=== PATIENT | male | born 2000 | race Caucasian/White ===

== ENCOUNTER → 2024-08-12 15:39 | Outpatient (BNVA) | payer BC, SELFPAY | PROVIDERS: Family Provider Nurse Practitioner Family; PCP Registered Nurse; Visit Provider Nurse Practitioner Family | DX: I10 Essential (primary) hypertension (principal); R03.0 Elevated blood-pressure reading, without diagnosis of hypertension; R53.83 Other fatigue | CPT/HCPCS: 80053; 80061; 84443; 85025 ==

== ENCOUNTER 2025-05-14 06:54 | Outpatient (CLI) | payer BC, SELFPAY ==
--- NOTE | 2025-05-14 07:14 | XR_ITS ---
WS: [id number] XR knee RT 3V* [id number] REASON FOR EXAM: S89.91XA - Unspecified injury of right lower leg, initial... FINDINGS: No fracture or focal bone lesion. Joint spaces of the knee are intact and well preserved. No soft tissue radiopaque foreign body. XR/XR knee RT 3V* [id number] IMPRESSION: No significant bone or joint abnormality.
== END 2025-05-14 06:55 | disposition home or self-care (01) ==
PROVIDERS: Family Provider Nurse Practitioner Family; PCP Nurse Practitioner Family; Visit Provider Nurse Practitioner Family
DX: S89.91XA Unspecified injury of right lower leg, initial encounter (principal); X58.XXXA Exposure to other specified factors, initial encounter
CPT/HCPCS: 73562

== ENCOUNTER 2025-06-25 08:00 | Outpatient (CLI) | payer BC, SELFPAY ==
--- NOTE | 2025-06-25 08:00 | MR_ITS ---
WS: [id number] MRI RIGHT KNEE NONCONTRAST TECHNIQUE: Axial PD, coronal PD fat sat, coronal PD, sagittal PD, and sagittal PD fat-sat images obtained. CLINICAL INFORMATION: M25.361 - Other instability, right knee COMPARISON: None. FINDINGS: Distal quadriceps and patella tendons are intact. Normal ACL and PCL. Suspected radial tear involving the medial meniscus with blunting of the anterior horn. No visualized displaced fragments. Lateral meniscus appears intact. Recommend correlation for medial knee pain Mild chondromalacia patella. Medial and lateral patellar retinaculum appear intact. Normal lateral collateral ligament. Normal medial collateral ligament. Normal popliteal fossa. No other acute findings. MR/MR knee RT wo con* [id number] IMPRESSION: 1. Normal ACL and PCL. 2. Suspected radial tear involving the medial meniscus extending to the menisc al root. Blunting of the anterior horn medial meniscus. Lateral meniscus appear s intact. 3. Normal medial and lateral collateral ligaments. 4. Mild chondromalacia patella. 5. No other acute findings. Outbridge grading: grade II: blister-like swelling/fraying of articular cartila ge extending to surface
== END 2025-06-25 08:01 | disposition home or self-care (01) ==
LOC: RAD 08:02
PROVIDERS: Family Provider Nurse Practitioner Family; PCP Nurse Practitioner Family; Visit Provider Nurse Practitioner Family
DX: M25.361 Other instability, right knee (principal); M22.41 Chondromalacia patellae, right knee; M24.10 Other articular cartilage disorders, unspecified site; S89.81XA Other specified injuries of right lower leg, initial encounter; X58.XXXA Exposure to other specified factors, initial encounter
CPT/HCPCS: 73721

== ENCOUNTER 2025-08-10 08:25 | Day surgery (SDC) | payer OTHER, SELFPAY ==
[2025-08-10] VITALS (9 sets, daily range): BP systolic 108–126; BP diastolic 55–87; PULSE 69–98; RESP 10–24; TEMP 36.3–36.7; O2SAT 95–100; BMI 26.4
--- NOTE | 2025-08-10 09:16 | ANES.PREANE2 ---
Pre-Anesthetic Assessment Height/Weight: Height 6 ft Weight 195 lb Temp Pulse Resp BP Pulse Ox O2 Del Method 98.1 F 76 17 126/55 97 Room Air 08/10/25 08:50 08/10/25 08:50 08/10/25 08:50 08/10/25 08:50 08/10/25 08:50 08/10/25 08:51 Preop Diagnosis: Meniscus tear Operation Date: 08/10/25 10:40 Proposed Procedures p RIGHT Knee Arthroscopic With POSSIBLE Medial Meniscus Repair(Right) - Trey Dodge MD Was Beta Kika taken within 24 hours: N/A Was Clonidine taken within 24 hours: N/A Last intake: Intake Last Liquid Date 08/09/25 Last Liquid Time 21:00 Last Solid Date 08/09/25 Last Solid Time 19:00 Social No alcohol and No tobacco Exam alert, oriented x 3, clear to auscultation bilaterally and regular rate & rhythm Airway Submandibular: within normal limits Cervical ROM: within normal limits Mallampati: Class II Dentition: full Anesthetic Plan ASA status: 1 Anesthesia: General Other: Very active individual, no prior issues with anesthesia NPO since yesterday evening Takes no baseline medications Denies any cardiac or pulmonary issues Patient did have an upper respiratory infection about a week ago. No symptoms in the last week METs greater than 4 Plan for general anesthesia with possible peripheral nerve block in recovery Medications/Allergies Home Medications ?Medication ?Instructions ?Recorded ?Confirmed ?Last Taken ?Type No Known Home Medications 08/22/23 08/09/25 Unknown History Allergies Allergy/AdvReac Type Severity Reaction Status Date / Time No Known Allergies Allergy Verified 07/29/25 08:23 Current Medications Generic Name Dose Route Start Last Admin Trade Name Freq PRN Reason Stop Dose Admin Sodium Chloride 1,000 mls @ 30 mls/hr 08/10/25 08:45 08/10/25 09:03 Sodium Chloride 0.9% IV 08/11/25 08:44 30 mls/hr .Q24H JAYNE Administration PFSH Anesthesia Medical History Hearing loss Surgical History History of tympanostomy tube placement Social History Smoking and tobacco/nicotine status: never used tobacco/nicotine Alcohol intake: never Substance/Drug Use: never Adopted: No Caregiver/support person: No Lives independently: No Household members: family Current occupational status: employed Sexually active: Yes Do you think of yourself as: Straight/Heterosexual Current gender identity: Male
[2025-08-10] MEDS: ceFAZolin 2,000 mg SDV 2000 MG IVP (09:22)
[2025-08-10] MEDS: BUPivacaine 0.5% INJ 30 mL INJECTION (10:10)
--- NOTE | 2025-08-10 10:24 | W.PM.OPSUD ---
Surgery/Procedure H&P Update DATE OF PROCEDURE: August 10, 2025 DATE H&P PERFORMED: 07/29/25 H&P UPDATE INFORMATION: I have reviewed H&P completed within last 30 days, I have examined patient prior to procedure and No changes to prior documentation PREOP DIAGNOSIS: Meniscus tear PLANNED PROCEDURE: Operation Date: 08/10/25 10:40 Proposed Procedures p RIGHT Knee Arthroscopic With POSSIBLE Medial Meniscus Repair(Right) - Trey Dodge MD
--- NOTE | 2025-08-10 11:41 | PM.OP ---
Operative Report Date of procedure: August 10, 2025 Surgeon: Trey Dodge MD Procedure: Pre-op diagnosis: Internal derangement of the right knee Postoperative diagnosis: Torn posterior horn medial meniscus Procedure: Diagnostic right knee arthroscopy with debridement of medial meniscus and meniscal repair Surgeon: Trey Dodge MD Anesthesia: General Indications: Lennox is a 25-year-old white male who injured his knee sometime ago but recently reinjured it and is having pain problem to be on the medial aspect of his knee set able to squat down more do anything strenuous his knee without having increased pain and swelling. Subsequent MRI was obtained and by personal review identified a tear of the posterior horn medial meniscus that appeared to be a radial tear. Therefore at this time patient was offered a diagnostic knee arthroscopy since his symptoms have worsened and not improved with conservative measures in any way. All risk benefits treatment alternatives were discussed with him and he was agreeable to this Procedure: After obtaining her consent patient taken to the operating room placed in the operative table supine position general anesthetic administered. Once good anesthesia achieved and right leg was placed in a leg sanchez and foot bed was dropped. Left leg was padded out appropriately. Right leg was prepped and draped usual fashion. After surgical timeout standard anterior medial and lateral portals were made in the right knee with a #11 blade. Camera cannulas placed to the lateral portal into her knee was undertaken. Suprapatellar pouch was inflamed however no other abnormalities. Posterior patella is in good repair as well as the IT groove. No chondromalacia noted. Medial gutter was clear. Medial compartment demonstrated some slight damage to the central medial condyle but no significant damage in the area. Probing the medial meniscus found that there was a radial tear along the capsular insertion or close to the capsular insertion of the posterior horn medial meniscus. There is active bleeding coming from this area. Further evaluation the medial meniscus demonstrated no other gross abnormalities. Subsequently at this time evaluation intercondylar notch demonstrated intact anterior cruciate ligament with no abnormalities. Lateral compartment is clear of any pathology also. Tissue was turned back to the medial compartment. Subsequently using a jugular stitch a single stitch was placed into the tear and equal distance is and sutured the tear back down. Further probing the meniscus found that it was now repaired. He was washed sterile irrigation. Camera cans removed. Half percent Marcaine was injected around the portal sites for postop pain management. Wounds are cleaned with and dried. They were closed with 3-0 Prolene interrupted sutures. Wounds were then dressed with Xeroform gauze sterile gauze dressing Kerlix wrap and Jasmeet wrap for compression. Patient was placed in a Phillips knee brace locked out to full extension. He was then awakened transferred recovery in stable condition
[2025-08-10] MEDS: HYDROcodone-acetaminophen 5-325 mg Tablet 1 TAB PO (12:01)
--- NOTE | 2025-08-10 12:30 | ANE.PACU2 ---
Inpatient post-anesthesia follow up: Airway intact: Yes Vital signs: Temperature 97.4 F Pulse Rate 70 Respiratory Rate 15 Blood Pressure 120/67 Pulse Oximetry 96 Oxygen Delivery Me thod Room Air Oxygen Flow Rate Fraction of Inspir ed Oxygen Hydration adequate: Yes Nausea and vomiting: No Pain level: 1 Mental status: Baseline
== END 2025-08-10 12:33 | disposition home or self-care (01) ==
PROVIDERS: PCP Nurse Practitioner Family; Visit Provider Orthopaedic Surgery
PROC: (CPT 29882; principal; 2025-08-10 10:20)
DX: M23.91 Unspecified internal derangement of right knee (principal); S83.241A Other tear of medial meniscus, current injury, right knee, initial encounter; X58.XXXA Exposure to other specified factors, initial encounter
CPT/HCPCS: 29882; C1713; J0131; J0690; J1100; J1171; J1885; J2250; J2704; J3010; J3490; J7030; J9999